=== PATIENT | male | born 1945 | race Caucasian/White ===

== ENCOUNTER 2016-02-18 15:28 | Observation (INO) ==
[2016-02-18] MEDS ORDERED: *HR* Morphine 2 MG/ML SYRINGE IVP PRN (15:32)
[2016-02-18] MEDS ORDERED: Ondansetron 4 MG/2 ML VIAL IVP PRN (15:32)
[2016-02-18] MEDS ORDERED: Naloxone 0.4 MG/ML INJ IVP PRN (15:32)
[2016-02-18] MEDS: Piperacillin/Tazobactam 3.375 GM in D5% in Water (Mini-Bag+) 100 ML IVPB SCH ×2 (16:00→18:36)
[2016-02-18 16:43] LABS: Basophils % 0.6 %; Eosinophils # 0.1 K/mcL (0.0-0.6); Eosinophils % 1.8 %; Hematocrit 34.6 % (37.5-50.1); Hemoglobin 10.5 g/dL (12.9-16.9); Immature Granulocytes % 0.3 % (0-4); Lymphocytes # 1.2 K/mcL (0.6-4.6); Lymphocytes % 16.2 %; Mean Corpuscular HGB Conc 30.3 g/dL (31.6-35.5); Mean Corpuscular Hemoglobin 23.9 pg (28.0-33.3); Mean Corpuscular Volume 78.6 fL (83.0-100.0); Mean Platelet Volume 9.7 fL (9.4-12.4); Monocytes % 13.5 %; Neutrophils # 4.9 K/mcL (1.6-8.9); Platelet Count 156 K/mcL (140-400); Red Cell Distribution Width 16.1 % (11.5-14.5); Segmented Neutrophils % 67.6 %
[2016-02-18] MEDS: Albuterol 2.5 MG/3 ML NEBULIZER IH SCH ×2 (16:44→21:12)
[2016-02-18 16:54] LABS: INR 2.2; Prothrombin Time 24.4 Seconds (9.4-12.1)
[2016-02-18 16:56] LABS: BUN/Creatinine Ratio 17 (6-26); Blood Urea Nitrogen 21 mg/dL (8-26); Calcium 8.7 mg/dL (8.6-10.8); Carbon Dioxide 27 mEq/L (19-29); Chloride 104 mEq/L (98-109); Glucose 92 mg/dL (70-99); Osmolality,Calculated 287 (280-300); Sodium 137 mEq/L (136-145); eGFR For African Americans > 60 (> 60); eGFR For Non-African Americans 56 (> 60)
[2016-02-18] MEDS: *HR* LORazepam 1 MG TABLET PO SCH (20:07)
[2016-02-18] MEDS: Beclomethasone 80mcg MDI IH SCH (21:10)
[2016-02-18] MEDS ORDERED: 0.9 % Sodium Chloride 1,000 ML IVC SCH (23:55)
[2016-02-19] MEDS: Piperacillin/Tazobactam 3.375 GM in D5% in Water (Mini-Bag+) 100 ML IVPB SCH ×3 (00:55→17:35)
[2016-02-19] MEDS: Albuterol 2.5 MG/3 ML NEBULIZER IH SCH ×4 (03:59→21:48)
[2016-02-19] MEDS ORDERED: Pantoprazole 40 MG VIAL IVP SCH (09:00)
[2016-02-19] MEDS: *HR* LORazepam 1 MG TABLET PO SCH ×2 (09:04→20:14)
[2016-02-19 11:21] LABS: Basophils # 0.1 K/mcL (0.0-0.2); Basophils % 0.7 %; Eosinophils # 0.1 K/mcL (0.0-0.6); Eosinophils % 1.6 %; Hematocrit 34.9 % (37.5-50.1); Hemoglobin 10.7 g/dL (12.9-16.9); Immature Granulocytes % 0.3 % (0-4); Lymphocytes # 1.5 K/mcL (0.6-4.6); Lymphocytes % 21.9 %; Mean Corpuscular HGB Conc 30.7 g/dL (31.6-35.5); Mean Corpuscular Hemoglobin 24.1 pg (28.0-33.3); Mean Corpuscular Volume 78.6 fL (83.0-100.0); Mean Platelet Volume 9.7 fL (9.4-12.4); Monocytes % 14.3 %; Neutrophils # 4.1 K/mcL (1.6-8.9); Platelet Count 167 K/mcL (140-400); Red Blood Count 4.44 M/mcL (4.19-5.50); Red Cell Distribution Width 16.3 % (11.5-14.5); Segmented Neutrophils % 61.2 %
[2016-02-19 11:27] LABS: INR 1.6; Prothrombin Time 17.3 Seconds (9.4-12.1)
[2016-02-19 11:32] LABS: BUN/Creatinine Ratio 15 (6-26); Blood Urea Nitrogen 18 mg/dL (8-26); Calcium 8.9 mg/dL (8.6-10.8); Carbon Dioxide 24 mEq/L (19-29); Chloride 105 mEq/L (98-109); Glucose 121 mg/dL (70-99); Osmolality,Calculated 287 (280-300); Potassium 4.5 mEq/L (3.5-4.5); Sodium 137 mEq/L (136-145); eGFR For African Americans > 60 (> 60); eGFR For Non-African Americans 58 (> 60)
[2016-02-19] MEDS: Beclomethasone 80mcg MDI IH SCH ×2 (11:38→21:48)
--- NOTE | 2016-02-19 14:38 | General Surgery Progress Note ---
<Latrice Guerrero Paul - Last Filed: 02/19/16 14:49> Date of Encounter: 02/19/16 Time of Encounter: 11:20 - Assessment and Plan (1) Incarcerated umbilical hernia Current Visit: Yes Status: Acute IV antibiotics Patient took last dose of Xarelto 02/18/16 in the am- plan to proceed to the OR for a likely primary repair of incarcerated umbilical hernia after evaluation by cardiology. To the OR likely in the next 24 hours. Supportive care/pain control Repeat labs (2) CAD (coronary artery disease) Current Visit: Yes Status: Chronic Cardiology to evaluate for pre-op clearance today Qualifiers: Coronary Disease-Associated Artery/Lesion type: bypass graft [place] vs. transplanted heart: [place] heart Associated angina: angina presence unspecified Qualified Code(s): I25.810 - Atherosclerosis of coronary artery bypass graft(s) without angina pectoris (3) Atrial fibrillation Current Visit: Yes Status: Chronic Rate controlled Continue home dose of metoprolol Hold Xarelto for surgery- last dose 02/18/16 in the am Qualifiers: Atrial fibrillation type: unspecified Qualified Code(s): I48.91 - Unspecified atrial fibrillation (4) Diabetes mellitus Current Visit: Yes Status: Chronic Blood sugars controlled Continue to monitor and adjust medications as necessary Qualifiers: Diabetes mellitus type: type 2 Diabetes mellitus complication status: without complication Diabetes mellitus fdc insulin use: without fdc use Qualified Code(s): E11.9 - Type 2 diabetes mellitus without complications (5) Hypertension Current Visit: Yes Status: Chronic Controlled Continue home medication regimen Monitor and adjust treatment regimen as necessary Qualifiers: Hypertension type: essential hypertension Qualified Code(s): I10 - Essential (primary) hypertension (6) COPD (chronic obstructive pulmonary disease) Current Visit: Yes Status: Chronic Controlled Continue home medication regimen Robitussin ordered prn for cough Qualifiers: COPD type: unspecified COPD Qualified Code(s): J44.9 - Chronic obstructive pulmonary disease, unspecified (7) Acute kidney injury Current Visit: Yes Status: Acute Continue IV fluids Improved today- 1.27>1.23 (8) DVT prophylaxis Current Visit: Yes Status: Acute 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 Patient on Xarelto- last dose 02/18/16 in the am Subjective Patient reports: no new complaints, feels better, still having pain, pain is less, flatus, afebrile, other (complaint of cough) Objective Vital Signs - Last 8 Hours Temp Pulse Resp BP Pulse Ox 02/19/16 10:45 97.8 F 62 15 144/74 97 02/19/16 06:44 98.7 F 82 17 149/87 92 L Intake and Output 02/18/16 02/19/16 02/19/16 23:59 07:59 15:59 Intake Total 540 / 540 100 / 100 Output Total 150 / 150 450 / 450 Balance 390 / 390 -350 / -350 Intake: IV Fluids 100 / 100 100 / 100 Zosyn 3.375 GM In 100 / 100 100 / 100 Dextrose 5% (Minibag+) 100 ML 100 ML @ 25 mls/hr IVPB Q8HR [facility] Rx#: [id number] Oral 440 / 440 0 / 0 Output: Urine 150 / 150 450 / 450 Other: Meal NPO Stool Size Large Stool Consistency soft Stool Color Yellow Green Weight 119.2 kg Blood Glucose* 124 110 - General physical appearance well developed, well nourished, no distress, moderate pain - Eyes normal ocular movement - ENT normal mucosa, atraumatic, normocephalic - Neck Neck exam: trachea midline - Respiratory normal respiratory effort, clear to auscultation - Cardiovascular Cardiovascular exam: Present: RRR - Abdomen Abdomen: Present: bowel sounds present, soft, tender (umbilical) Hernia: umbilical (erythema improved today) - Integumentary no rash, no growths - Neurologic CN 2-12 grossly intact - Musculoskeletal normal gait, normal posture - Psychiatric oriented to time, oriented to person, oriented to place, speech is normal, memory intact - Labs 02/19/16 11:09 02/19/16 11:09 Diabetes panel 02/18/16 02/19/16 Range/Units 16:35 11:09 Sodium 137 137 (136-145) mEq/L Potassium 4.0 4.5 (3.5-4.5) mEq/L Chloride 104 105 (98-109) mEq/L Carbon Dioxide 27 24 (19-29) mEq/L BUN 21 18 (8-26) mg/dL Creatinine 1.27 H 1.23 (0.72-1.25) mg/dL Glucose 92 121 H (70-99) mg/dL Calcium 8.7 8.9 (8.6-10.8) mg/dL Calcium panel 02/18/16 02/19/16 Range/Units 16:35 11:09 Calcium 8.7 8.9 (8.6-10.8) mg/dL Pituitary panel 02/18/16 02/19/16 Range/Units 16:35 11:09 Sodium 137 137 (136-145) mEq/L Potassium 4.0 4.5 (3.5-4.5) mEq/L Chloride 104 105 (98-109) mEq/L Carbon Dioxide 27 24 (19-29) mEq/L BUN 21 18 (8-26) mg/dL Creatinine 1.27 H 1.23 (0.72-1.25) mg/dL Glucose 92 121 H (70-99) mg/dL Calcium 8.7 8.9 (8.6-10.8) mg/dL Adrenal panel 02/18/16 02/19/16 Range/Units 16:35 11:09 Sodium 137 137 (136-145) mEq/L Potassium 4.0 4.5 (3.5-4.5) mEq/L Chloride 104 105 (98-109) mEq/L Carbon Dioxide 27 24 (19-29) mEq/L BUN 21 18 (8-26) mg/dL Creatinine 1.27 H 1.23 (0.72-1.25) mg/dL Glucose 92 121 H (70-99) mg/dL Calcium 8.7 8.9 (8.6-10.8) mg/dL Consult Discharge Plan - Plan Additional Instructions: No lifting more than 15 pounds for 6 weeks. Okay to take a shower in 24 hours. No tub baths or pools until jakob removed. Okay to ride in the car wearing a seatbelt and climb steps. No driving until off narcotics for 24 hours and able to react safely OK to use ice to abdomen, dont use heat it will make swelling worse wear your abdominal binder at all times while not in shower restart your xarelto 48 hrs after surgery Referrals: Suly Hartley MD [Partnered Physician] - Ronal Mcbride MD [Primary Care Provider] - Prescriptions: OxyCODONE/APAP 5/325 [Percocet 5/325 MG] 1 each PO Q6HR PRN #30 tablet PRN Reason: Pain Amoxicillin/Clavulanate [Augmentin] 875 mg PO BIDWM #14 tablet Docusate [Colace] 100 mg PO DAILY #30 capsule - Attending Attestation I examined this patient and my medical decision-making was reviewed with the FIREFIGHTING EQUIPMENT SPECIALIST/PA/Advanced Practice Nurse/Resident Physician. I agree with the documented findings, disposition and treatment plan as described except to the extent set forth below. <NaeemSuly Diaz - Last Filed: 02/19/16 18:17> - Assessment and Plan (1) Acute kidney injury Current Visit: Yes Status: Acute (2) Incarcerated umbilical hernia Current Visit: Yes Status: Acute (3) Atrial fibrillation Current Visit: Yes Status: Chronic Qualifiers: Atrial fibrillation type: unspecified Qualified Code(s): I48.91 - Unspecified atrial fibrillation (4) CAD (coronary artery disease) Current Visit: Yes Status: Chronic Qualifiers: Coronary Disease-Associated Artery/Lesion type: bypass graft [place] vs. transplanted heart: [place] heart Associated angina: angina presence unspecified Qualified Code(s): I25.810 - Atherosclerosis of coronary artery bypass graft(s) without angina pectoris (5) Hypertension Current Visit: Yes Status: Chronic Qualifiers: Hypertension type: essential hypertension Qualified Code(s): I10 - Essential (primary) hypertension Subjective Patient reports: feels better, still having pain, pain is less, flatus Objective Vital Signs - Last 8 Hours Temp Pulse Resp BP Pulse Ox 02/19/16 17:55 97.7 F 92 16 185/117 97 02/19/16 10:45 97.8 F 62 15 144/74 97 Intake and Output 02/19/16 02/19/16 02/19/16 07:59 15:59 23:59 Intake Total 100 / 100 100 / 100 Output Total 450 / 450 5 / 5 Balance -350 / -350 100 / 100 -5 / -5 Intake: IV Fluids 100 / 100 100 / 100 Zosyn 3.375 GM In 100 / 100 100 / 100 Dextrose 5% (Minibag+) 100 ML 100 ML @ 25 mls/hr IVPB Q8HR [facility] Rx#: [id number] Oral 0 / 0 Output: Urine 450 / 450 Estimated Blood Loss 5 / 5 Other: Meal NPO Stool Size Large Stool Consistency soft Stool Color Yellow Green Blood Glucose* 124 110 - General physical appearance well developed, well nourished, no distress, moderate pain - Eyes PERRL, normal ocular movement - ENT normal mucosa, decreased hearing, atraumatic - Neck Neck exam: trachea midline - Respiratory clear to auscultation - Cardiovascular Cardiovascular exam: Present: irregular rhythm - Abdomen Abdomen: Present: bowel sounds present, soft, tender Hernia: umbilical - Integumentary no rash, no growths - Neurologic CN 2-12 grossly intact - Musculoskeletal normal gait, normal posture - Psychiatric oriented to time, memory intact - Labs 02/19/16 11:09 02/19/16 11:09 Diabetes panel 02/19/16 Range/Units 11:09 Sodium 137 (136-145) mEq/L Potassium 4.5 (3.5-4.5) mEq/L Chloride 105 (98-109) mEq/L Carbon Dioxide 24 (19-29) mEq/L BUN 18 (8-26) mg/dL Creatinine 1.23 (0.72-1.25) mg/dL Glucose 121 H (70-99) mg/dL Calcium 8.9 (8.6-10.8) mg/dL Calcium panel 02/19/16 Range/Units 11:09 Calcium 8.9 (8.6-10.8) mg/dL Pituitary panel 02/19/16 Range/Units 11:09 Sodium 137 (136-145) mEq/L Potassium 4.5 (3.5-4.5) mEq/L Chloride 105 (98-109) mEq/L Carbon Dioxide 24 (19-29) mEq/L BUN 18 (8-26) mg/dL Creatinine 1.23 (0.72-1.25) mg/dL Glucose 121 H (70-99) mg/dL Calcium 8.9 (8.6-10.8) mg/dL Adrenal panel 02/19/16 Range/Units 11:09 Sodium 137 (136-145) mEq/L Potassium 4.5 (3.5-4.5) mEq/L Chloride 105 (98-109) mEq/L Carbon Dioxide 24 (19-29) mEq/L BUN 18 (8-26) mg/dL Creatinine 1.23 (0.72-1.25) mg/dL Glucose 121 H (70-99) mg/dL Calcium 8.9 (8.6-10.8) mg/dL
--- NOTE | 2016-02-19 14:50 | Cardiology Consult Note ---
Date of Encounter: 02/19/16 Time of Encounter: 13:30 Assessment and Plan (1) Preoperative cardiovascular examination Current Visit: Yes Status: Acute Mr. Sanchez is known to me from the outpatient setting. I just saw him recently on February 11, 2016 for a routine follow up. He was doing well from a cardiac perspective at that time. He continues to deny cardiac symptoms. His only complaint is that of abdominal pain. He recently had an echo demonstrating normal LV function and normal bioprosthetic mitral valve function. He has at least fair functional capacity. According to AHA/ACC guidelines, no further testing is warranted pre-procedurally. He is at acceptable cardiac risk to undergo repair of an incarcerated umbilical hernia. Of note, it has been over 24h since his last dose of xarelto. It is reasonable to undergo surgery. Will defer to the surgical team. Discussion w patient/family: The assessment and plan as outlined above was discussed with the patient and/or family members who expressed understanding and agreement. All questions were answered. Thank you for involving us in the care of your patient. Please call with any questions. History of Present Illness Consult date: 02/19/16 Requesting physician: Latrice Guerrero Consult reason: Pre operative evaluation Chief complaint: abdominal discomfort History of present illness: Mr. Sanchez is a 70 year old male admitted from the outpatient office for an incarcerated umbilical hernia. He reports having worsening abdominal pain over the past week. I recently saw him in the outpatient setting on 02/11/2016 when he was doing well. He denies new cardiac symptoms. He is not having chest pain , SOB or palpitations. He has baseline LE edema and is on lasix. He has PAF and is maintained on xarelto. Past Med Surg Social Fam HX - Past Medical History Attestation: Yes The following information was validated with the patient. Medical history: atrial fibrillation, cancer, CHF, COPD, hyperlipidemia, valvular heart disease Psychiatric history: anxiety, depression - Past Surgical History Surgical History: angioplasty/stent, coronary bypass (CABG), prostatectomy, AICD - Social History Smoking Status: Former smoker Smokeless Tobacco Status: No Alcohol use: none Drug use: none Medications and Allergies Acetaminophen [Tylenol] 1 - 2 tab PO Q6HR PRN #90 tablet 10/12/15 [Rx] Albuterol Sulfate [Proair Hfa] 2 puff IH Q4H PRN 10/12/15 [History] Aspirin 81 mg PO DAILY 10/12/15 [History] Beclomethasone Diprop 80mcg [QVAR 80 mcg] 1 puff IH BID 10/12/15 [History] Furosemide [Lasix] 40 mg PO DAILY 10/12/15 [History] LORazepam [Ativan] 1 mg PO BID 10/12/15 [History] Lansoprazole [Prevacid] 30 mg PO DAILY PRN 10/12/15 [History] Losartan [Cozaar] 50 mg PO DAILY 10/12/15 [History] Metoprolol Tartrate [Lopressor] 50 mg PO BID 10/12/15 [History] Montelukast [Singulair] 10 mg PO QPM 10/12/15 [History] Nitroglycerin [Nitrostat] 0.4 mg SL AD PRN 10/12/15 [History] Potassium Chloride [K-Tab ER] 10 meq PO DAILY 10/12/15 [History] Ranitidine HCl [Heartburn Relief] 150 mg PO DAILY PRN 10/12/15 [History] Rivaroxaban [Xarelto] 20 mg PO DAILY 10/12/15 [History] Rosuvastatin Calcium [Crestor] 10 mg PO QPM 10/12/15 [History] TraZODone 50 mg PO HS 10/12/15 [History] Mirabegron [Myrbetriq] 50 mg PO DAILY 02/18/16 [History] Allergies codeine Allergy (Verified 02/18/16 22:15) Anaphylaxis lisinopril Adverse Reaction (Verified 10/12/15 11:06) Cough All Systems Review: A 10-system review of systems was performed and is negative for pertinent findings except as documented above in the HPI. - Cardiovascular Cardiovascular: as per HPI Physical Examination General: Conversant, No Apparent Distress HEENT: Mucus Membranes Moist Neck: No JVD Cardiac: Reg Rate and Rhythm, Normal S1 and S2, No Murmur Lungs: Normal Breath Sounds Neuro: Alert and responsive, No focal deficits noted Abdomen: Soft, Other (normal bowel sounds) Extremities: Other (mild bilateral LE edema) Results 02/19/16 11:09 02/19/16 11:09 Lab Results 02/18/16 02/18/16 02/18/16 16:35 16:35 16:35 WBC 7.2 Hgb 10.5 L Hct 34.6 L Plt Count 156 INR 2.2 Sodium 137 Potassium 4.0 Chloride 104 Carbon Dioxide 27 BUN 21 Creatinine 1.27 H Glucose 92 Calcium 8.7 02/19/16 02/19/16 02/19/16 11:09 11:09 11:09 WBC 6.8 Hgb 10.7 L Hct 34.9 L Plt Count 167 INR 1.6 Sodium 137 Potassium 4.5 Chloride 105 Carbon Dioxide 24 BUN 18 Creatinine 1.23 Glucose 121 H Calcium 8.9 - Imaging and Cardiology Echo: report reviewed (07/24/2015 echo reviewed) Consult Discharge Plan - Plan Referrals: Ronal Mcbride MD [Primary Care Provider] -
--- NOTE | 2016-02-19 16:21 | Anesthesia Evaluation PreOp ---
Date of Encounter: 02/19/16 Time of Encounter: 16:18 - Past History Planned Operation: Incarcerated Umbilical Hernia Repair Cardiac History: AR, HTN, Hyperlipidemia, Cardiac Surgery (CABG x 2, MV repair) , Cardiac Stent (stent x 1), Pacemaker/ICD (AICD) Pulmonary History: Former smoker (quit 13 years ago, smoked for 40 years), Asthma, COPD WILDLIFE MANAGER History: Denies Any Significant HX Other Medical History: GERD Anesthesia History: No Prior Anesthetic Complications, Past Anesthesia Alcohol Use: none Drug use: none Medications and Allergies Acetaminophen [Tylenol] 1 - 2 tab PO Q6HR PRN #90 tablet 10/12/15 [Rx] Albuterol Sulfate [Proair Hfa] 2 puff IH Q4H PRN 10/12/15 [History] Aspirin 81 mg PO DAILY 10/12/15 [History] Beclomethasone Diprop 80mcg [QVAR 80 mcg] 1 puff IH BID 10/12/15 [History] Furosemide [Lasix] 40 mg PO DAILY 10/12/15 [History] LORazepam [Ativan] 1 mg PO BID 10/12/15 [History] Lansoprazole [Prevacid] 30 mg PO DAILY PRN 10/12/15 [History] Losartan [Cozaar] 50 mg PO DAILY 10/12/15 [History] Metoprolol Tartrate [Lopressor] 50 mg PO BID 10/12/15 [History] Montelukast [Singulair] 10 mg PO QPM 10/12/15 [History] Nitroglycerin [Nitrostat] 0.4 mg SL AD PRN 10/12/15 [History] Potassium Chloride [K-Tab ER] 10 meq PO DAILY 10/12/15 [History] Ranitidine HCl [Heartburn Relief] 150 mg PO DAILY PRN 10/12/15 [History] Rivaroxaban [Xarelto] 20 mg PO DAILY 10/12/15 [History] Rosuvastatin Calcium [Crestor] 10 mg PO QPM 10/12/15 [History] TraZODone 50 mg PO HS 10/12/15 [History] Mirabegron [Myrbetriq] 50 mg PO DAILY 02/18/16 [History] Allergies codeine Allergy (Verified 02/18/16 22:15) Anaphylaxis lisinopril Adverse Reaction (Verified 10/12/15 11:06) Cough - Meds/Allergy Pre-op Review Medications Reviewed: Yes Allergies Reviewed: Yes Beta Blockers on Current Med List: Yes If Beta Blockers taken, Date/Time (Last Dose taken): 02/19/2016 at 0904 Anesthesia Results - Labs 02/19/16 11:09 02/19/16 11:09 - Imaging EKG: report reviewed (12/07/2015 SR, occasional PSVC's, possible inferior infarct) Additional studies: 07/24/2015 Echo LVEF 55% mild concentric LVH mild segmental LV diastolic dysfunction moderately dilated LA bioprosthetic mitral valve leaflets were not well visualized but demonstrated normal function by doppler no mitral stenosis 05/05/2014 Cath Impressions: 30%-40% distal LM stenosis with FFR Measurement of 0.93. 70%-80% mid LAD stenosis with FFR Measurement of 0.80. 80% Diagonal I stenosis (bifurcating lesion with the mid LAD stenosis). Occluded dominant mid RCA stents with immature left to right collaterals seen. The left ventricle is normal and has severely abnormal contractility EF of 35%. Anesthesia Exam Vital Signs/O2 Sat/Glucose, Most Recent Temp Pulse Resp BP Pulse Ox 97.8 F 62 15 144/74 97 02/19/16 10:45 02/19/16 10:45 02/19/16 10:45 02/19/16 10:45 02/19/16 10:45 Blood Glucose* 110 Height: 5'7''/1.7 m Weight: 262 lbs/119.2 kg NPO (# of Hours): 8 Pain Scale: 0 Pain Scale Used: Numeric (1 - 10) - HEENT Pupil (Motor): EOMI Mallampati: III Teeth: Missing (has 2 lower teeth) Denture Type: Upper: Complete Oral Opening: Greater than 3 - WILDLIFE MANAGER LOC: Oriented WILDLIFE MANAGER Motor: Normal RUE, Normal RLE, Normal LLE, Normal Face, Deficit LUE WILDLIFE MANAGER Sensory: Normal: RUE, RLE, LLE, Face, Deficit: LUE - Cardiac Rhythm: Regular Murmur: None - Pulmonary Breath Sounds: bilateral Clear Respiratory Effort: Symmetrical Anesthesia Assess/Plan ASA Score: 3 Modified [place] Scale for Level of Consciousness: Cooperative, oriented, and tranquil Anesthetic Plan: General Monitoring Plan: Standard Monitors Recovery Plan: PACU
[2016-02-19] MEDS ORDERED: *HR* Midazolam HCl 2 MG/2 ML VIAL ONE (16:28)
--- NOTE | 2016-02-19 16:38 | Electrocardiograph Report ---
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
[2016-02-19] MEDS ORDERED: *HR* Succinylcholine 200 MG/10 ML VIAL IVP ONE (16:41)
[2016-02-19] MEDS ORDERED: Dexamethasone 4 MG/ML VIAL ONE (16:51)
[2016-02-19] MEDS ORDERED: Ondansetron 4 MG/2 ML VIAL ONE (16:51)
[2016-02-19] MEDS ORDERED: Lidocaine -MPF 2% 2 ML VIAL ONE (16:53)
[2016-02-19] MEDS ORDERED: *HR* FentaNYL (PF) 100 MCG/2 ML VIAL ONE (16:53)
[2016-02-19] MEDS ORDERED: *HR* Propofol 200 MG/20 ML VIAL IVP ONE (16:53)
[2016-02-19] MEDS ORDERED: *HR* Rocuronium Bromide 50 MG/5 ML VIAL ONE (17:00)
[2016-02-19] MEDS ORDERED: *HR* Promethazine 25 MG/ML VIAL IVP PRN (17:17)
[2016-02-19] MEDS ORDERED: *HR* HYDROmorphone (PF) 1 MG/ML SYRINGE IVP PRN ×2 (17:17→19:45)
[2016-02-19] MEDS ORDERED: Neostigmine Methylsulfate 3 MG/3 ML SYRINGE ONE (17:42)
[2016-02-19] MEDS ORDERED: Ketorolac 30 MG/ML VIAL ONE (17:43)
--- NOTE | 2016-02-19 17:51 | Operative Note ---
Date of procedure: 02/19/16 Pre-op diagnosis: incarcerated umbilical hernia Post-op diagnosis: other (Strangulated umbilical hernia) Procedure: Open primary repair of a strangulated (omentum) umbilical hernia Complications: none immediate Anesthesia: GETA, local Local Anesthetics: 0.5% Sensorcaine HCL SubQ (cc) (30) Surgeon: Suly Hartley Commutator Tester: Julia Samano Estimated blood loss (cc): 5 Specimen: none Condition: stable Disposition: PACU Procedure in Detail: Patient was brought to the operating suite and placed supine on the operating table. Sign was performed and everyone was in agreement. Anesthesia was induced and patient was endotracheally intubated by anesthesia without incident. The abdomen was shaved and then prepped and draped in the usual sterile fashion. Timeout was performed again everyone was in agreement. A left lateral semicircular incision through the skin into the subcutaneous tissue around the umbilicus was made with a 15 blade. We dissected through the subcutaneous tissue until we encountered the umbilical hernia which Contained strangulated omentum. The omentum was reduced out of the umbilical hernia with gentle blunt dissection as well as the Bovie. A small amount of omentum was resected with the Bovie. The omentum that was adherent to the intra-abdominal wall around the hernia was taken down with the Bovie. The omentum was evaluated for any bleeding and there did not appear to be any obvious bleeding. The omentum was reduced back into the abdomen. The subcutaneous tissue around the hernia defect was freed up for approximately a centimeter and a half circumferentially with the Bovie. The hernia defect was closed with multiple # 1 non-looped PDS [id number] stitches. The wound was copiously irrigated with sterile saline. The umbilicus skin was tacked down with 2 separate 3-0 Vicryl [id number] stitches. The subcutaneous tissue was reapproximated with 3-0 Vicryl interrupted stitches. The skin was closed with jakob. 4 x 4' s and Medipore tape were used as a dressing. A 4 panel binder was then applied to the patient's abdomen. He was awoken in the operating suite and extubated having tolerated the procedure well. All lap and instrument counts were correct at the end of the case. The patient was brought to PACU in stable condition
--- NOTE | 2016-02-19 17:57 | Discharge Summary ---
<Suly Hartley - Last Filed: 02/19/16 17:52> Date of Encounter: 02/20/16 Time of Encounter: 12:00 - Discharge Diagnosis (1) Acute kidney injury Priority: Secondary Status: Acute (2) Incarcerated umbilical hernia Priority: Primary Status: Acute (3) Atrial fibrillation Priority: Secondary Status: Chronic Qualifiers: Atrial fibrillation type: unspecified Qualified Code(s): I48.91 - Unspecified atrial fibrillation (4) CAD (coronary artery disease) Priority: Secondary Status: Chronic Qualifiers: Coronary Disease-Associated Artery/Lesion type: bypass graft [place] vs. transplanted heart: [place] heart Associated angina: angina presence unspecified Qualified Code(s): I25.810 - Atherosclerosis of coronary artery bypass graft(s) without angina pectoris (5) Hypertension Priority: Secondary Status: Chronic Qualifiers: Hypertension type: essential hypertension Qualified Code(s): I10 - Essential (primary) hypertension - Discharge Medications Prescriptions: OxyCODONE/APAP 5/325 [Percocet 5/325 MG] 1 each PO Q6HR PRN #30 tablet PRN Reason: Pain Amoxicillin/Clavulanate [Augmentin] 875 mg PO BIDWM #14 tablet Docusate [Colace] 100 mg PO DAILY #30 capsule Home Medications: Acetaminophen [Tylenol] 1 - 2 tab PO Q6HR PRN #90 tablet 10/12/15 [Rx] Albuterol Sulfate [Proair Hfa] 2 puff IH Q4H PRN 10/12/15 [History] Aspirin 81 mg PO DAILY 10/12/15 [History] Beclomethasone Diprop 80mcg [QVAR 80 mcg] 1 puff IH BID 10/12/15 [History] Furosemide [Lasix] 40 mg PO DAILY 10/12/15 [History] LORazepam [Ativan] 1 mg PO BID 10/12/15 [History] Lansoprazole [Prevacid] 30 mg PO DAILY PRN 10/12/15 [History] Losartan [Cozaar] 50 mg PO DAILY 10/12/15 [History] Metoprolol Tartrate [Lopressor] 50 mg PO BID 10/12/15 [History] Montelukast [Singulair] 10 mg PO QPM 10/12/15 [History] Nitroglycerin [Nitrostat] 0.4 mg SL AD PRN 10/12/15 [History] Potassium Chloride [K-Tab ER] 10 meq PO DAILY 10/12/15 [History] Ranitidine HCl [Heartburn Relief] 150 mg PO DAILY PRN 10/12/15 [History] Rivaroxaban [Xarelto] 20 mg PO DAILY 10/12/15 [History] Rosuvastatin Calcium [Crestor] 10 mg PO QPM 10/12/15 [History] TraZODone 50 mg PO HS 10/12/15 [History] Amoxicillin/Clavulanate [Augmentin] 875 mg PO BIDWM #14 tablet 02/19/16 [Rx] Docusate [Colace] 100 mg PO DAILY #30 capsule 02/19/16 [Rx] Mirabegron [Myrbetriq] 50 mg PO DAILY #0 02/19/16 [Rx] OxyCODONE/APAP 5/325 [Percocet 5/325 MG] 1 each PO Q6HR PRN #30 tablet 02/19/16 [Rx] Allergies/Adverse Reactions: Allergies codeine Allergy (Verified 02/18/16 22:15) Anaphylaxis lisinopril Adverse Reaction (Verified 10/12/15 11:06) Cough General Surgery Exam Initial Vital Signs Resp Pulse Ox 18 97 02/18/16 16:47 02/18/16 16:47 - General physical appearance well developed, well nourished, no distress, obese - Eyes PERRL, normal ocular movement - ENT normal mucosa, atraumatic, normocephalic - Neck trachea midline - Respiratory normal expansion, clear to auscultation - Cardiovascular Cardiovascular exam: Present: RRR, no murmurs/rubs/gallops - Abdomen Abdomen general surgery: Present: bowel sounds present, soft, tender (expected post op tenderness) - Incision Incision: Present: clean and dry, intact - Neurologic Present: CN 2-12 grossly intact - Musculoskeletal Present: normal gait, normal posture - Psychiatric Psychiatric general surgery: Present: A&Ox3, speech is normal Date of admission: 02/18/16 15:41 Primary care physician: Ronal Mcbride MD Consults: 02/18/16 15:45 Consult to Cardiology [CONS] Routine Comment: Consulting Provider: Cardiology [place] Reason for Consult: cardiac clearance, pt with incarcerated/possible strangulated hernia, holding xeralto Time Notified: 15:46 Call Completed: Yes 02/18/16 17:52 Consult to Invasive Line Access Team [CONS] Routine Reason for Consult: limited acsess Line Type: EPIV Time Notified: 17:53 Call Completed: Yes Discharging clinician: Suly Hartley Anticipated date of discharge: 02/20/16 - Patient Status Disposition: Home, Self-Care Condition: Good Overall status at discharge: patient is progressing back to baseline - Discharge Instructions Follow Up With: Ronal Mcbride MD [Primary Care Provider] - Suly Hartley MD [Partnered Physician] - Additional Instructions: No lifting more than 15 pounds for 6 weeks. Okay to take a shower in 24 hours. No tub baths or pools until jakob removed. Okay to ride in the car wearing a seatbelt and climb steps. No driving until off narcotics for 24 hours and able to react safely OK to use ice to abdomen, dont use heat it will make swelling worse wear your abdominal binder at all times while not in shower restart your xarelto 48 hrs after surgery - Diet and Activity Activity: increase activity as tolerated Diet: advance to your usual diet - Hospital Course Hospital course: Mr. Sanchez is a 70 year old male admitted with an incarcerated umbilical hernia. The abdominal wall around the hernia site was erythematous and tender. The skin of the umbilicus was erythematous and bruised. He was started on IV antibiotics. He was taken to the OR on 02/19/2016 for an open primary repair of a strangulated umbilical hernia. Strangulated omentum was within the hernia. Postoperatively he was started on a diet and advanced as he tolerated. He was discharged home in stable condition. - Time Spent with Patient Total time spent providing and/or coordinating discharge services: Labs on day of discharge: Labs from last 24 hours 02/19/16 02/19/16 02/19/16 11:44 11:09 11:09 WBC RBC Hgb Hct MCV MCH MCHC RDW Plt Count MPV Immature Gran % Seg Neutrophils % Lymphocytes % Monocytes % Eosinophils % Basophils % Neutrophils # Lymphocytes # Monocytes # Eosinophils # Basophils # PT 17.3 H INR 1.6 Sodium 137 Potassium 4.5 Chloride 105 Carbon Dioxide 24 BUN 18 Creatinine 1.23 Est GFR ( Amer) > 60 Est GFR (Non-Af Amer) 58 L BUN/Creatinine Ratio 15 Glucose 121 H POC Glucose 110 H Calculated Osmolality 287 Calcium 8.9 02/19/16 02/19/16 11:09 05:18 WBC 6.8 RBC 4.44 Hgb 10.7 L Hct 34.9 L MCV 78.6 L MCH 24.1 L MCHC 30.7 L RDW 16.3 H Plt Count 167 MPV 9.7 Immature Gran % 0.3 Seg Neutrophils % 61.2 Lymphocytes % 21.9 Monocytes % 14.3 Eosinophils % 1.6 Basophils % 0.7 Neutrophils # 4.1 Lymphocytes # 1.5 Monocytes # 1.0 Eosinophils # 0.1 Basophils # 0.1 PT INR Sodium Potassium Chloride Carbon Dioxide BUN Creatinine Est GFR ( Amer) Est GFR (Non-Af Amer) BUN/Creatinine Ratio Glucose POC Glucose 124 H Calculated Osmolality Calcium <Marita Ordonez - Last Filed: 02/20/16 11:53> Time of Encounter: 11:53 - Discharge Diagnosis (1) Incarcerated umbilical hernia Priority: Primary Status: Acute (2) Acute kidney injury Priority: Secondary Status: Acute (3) Atrial fibrillation Priority: Secondary Status: Chronic Qualifiers: Atrial fibrillation type: unspecified Qualified Code(s): I48.91 - Unspecified atrial fibrillation (4) CAD (coronary artery disease) Priority: Secondary Status: Chronic Qualifiers: Coronary Disease-Associated Artery/Lesion type: bypass graft [place] vs. transplanted heart: [place] heart Associated angina: angina presence unspecified Qualified Code(s): I25.810 - Atherosclerosis of coronary artery bypass graft(s) without angina pectoris (5) COPD (chronic obstructive pulmonary disease) Priority: Secondary Status: Chronic Qualifiers: COPD type: unspecified COPD Qualified Code(s): J44.9 - Chronic obstructive pulmonary disease, unspecified (6) Diabetes mellitus Priority: Secondary Status: Chronic Qualifiers: Diabetes mellitus type: type 2 Diabetes mellitus complication status: without complication Diabetes mellitus moth exterminator insulin use: without moth exterminator use Qualified Code(s): E11.9 - Type 2 diabetes mellitus without complications (7) Hypertension Priority: Secondary Status: Chronic Qualifiers: Hypertension type: essential hypertension Qualified Code(s): I10 - Essential (primary) hypertension (8) DVT prophylaxis Priority: Secondary Status: Acute General Surgery Exam Initial Vital Signs Resp Pulse Ox 18 97 02/18/16 16:47 02/18/16 16:47 - General physical appearance well developed, well nourished, no distress, obese - Eyes PERRL, normal ocular movement - ENT normal mucosa, atraumatic, normocephalic - Neck trachea midline - Respiratory normal expansion, clear to auscultation - Cardiovascular Cardiovascular exam: Present: RRR, no murmurs/rubs/gallops - Abdomen Abdomen general surgery: Present: bowel sounds present, soft, tender - Incision Incision: Present: clean and dry, intact - Integumentary Integumentary general surgery: Present: warm and dry, no abnormal pigmentation - Neurologic Present: CN 2-12 grossly intact - Musculoskeletal Present: normal gait, normal posture - Psychiatric Psychiatric general surgery: Present: A&Ox3, speech is normal Date of admission: 02/18/16 15:41 Primary care physician: Ronal Mcbride MD Consults: 02/18/16 15:45 Consult to Cardiology [CONS] Routine Comment: Consulting Provider: Cardiology [place] Reason for Consult: cardiac clearance, pt with incarcerated/possible strangulated hernia, holding xeralto Time Notified: 15:46 Call Completed: Yes Discharging clinician: Marita Ordonez - Patient Status Overall status at discharge: patient is progressing back to baseline - Diet and Activity Activity: increase activity as tolerated Diet: advance to your usual diet - Time Spent with Patient Total time spent providing and/or coordinating discharge services: Labs on day of discharge: Labs from last 24 hours 02/20/16 02/20/16 02/19/16 04:22 04:22 11:44 WBC 7.3 RBC 3.95 L Hgb 9.9 L Hct 30.8 L MCV 78.0 L MCH 25.1 L MCHC 32.1 RDW 15.9 H Plt Count 147 MPV 10.3 Immature Gran % 0.4 Seg Neutrophils % 82.9 Lymphocytes % 9.6 Monocytes % 7.0 Eosinophils % 0.0 Basophils % 0.1 Neutrophils # 6.0 Lymphocytes # 0.7 Monocytes # 0.5 Eosinophils # 0.0 Basophils # 0.0 Sodium 136 Potassium 4.4 Chloride 102 Carbon Dioxide 23 BUN 18 Creatinine 1.35 H Est GFR ( Amer) > 60 Est GFR (Non-Af Amer) 52 L BUN/Creatinine Ratio 13 Glucose 142 H POC Glucose 110 H Calculated Osmolality 286 Calcium 8.5 L - Impressions ITS Impressions Chest X-Ray 02/19/16 18:26 IMPRESSION: Mild right basilar atelectasis. Stable cardiomegaly, associated with ICD and mitral valve replacement. D/ / Aaron Basilio MD / Aaron Basilio MD Interpreting Provider: Aaron Basilio MD <Zi Welsh - Last Filed: 02/21/16 12:28> Date of Encounter: 02/20/16 General Surgery Exam Initial Vital Signs Resp Pulse Ox 18 97 02/18/16 16:47 02/18/16 16:47 Date of admission: 02/18/16 15:41 Primary care physician: Ronal Mcbride MD Consults: 02/18/16 15:45 Consult to Cardiology [CONS] Routine Comment: Consulting Provider: Cardiology [place] Reason for Consult: cardiac clearance, pt with incarcerated/possible strangulated hernia, holding xeralto Time Notified: 15:46 Call Completed: Yes - Hospital Course Hospital course: Mr. Sanchez is a 70 year old male - Time Spent with Patient Total time spent providing and/or coordinating discharge services: - Impressions ITS Impressions Chest X-Ray 02/19/16 18:26 IMPRESSION: Mild right basilar atelectasis. Stable cardiomegaly, associated with ICD and mitral valve replacement. D/ / Aaron Basilio MD / Aaron Basilio MD Interpreting Provider: Aaron Basilio MD - Attending Attestation I examined this patient and my medical decision-making was reviewed with the BINGO CHECKER/PA/Advanced Practice Nurse/Resident Physician. I agree with the documented findings, disposition and treatment plan as described except to the extent set forth below. Zi Welsh MD FACS
[2016-02-19] MEDS: *HR* Labetalol 100 MG/20 ML MDV IVP PRN ×2 (18:05→18:13)
[2016-02-19] MEDS ORDERED: Albuterol 2.5 MG/3 ML NEBULIZER ONE (18:07)
[2016-02-19] MEDS ORDERED: Albuterol 2.5 MG/3 ML NEBULIZER IH ONE (18:09)
[2016-02-19] MEDS ORDERED: Furosemide 40 MG/4 ML VIAL IVP ONE (18:38)
[2016-02-19] MEDS ORDERED: Furosemide 20 MG/2 ML VIAL IVP ONE ×2 (18:39→18:40)
--- NOTE | 2016-02-19 19:15 | Anesthesia Evaluation Post Op ---
Date of Encounter: 02/19/16 Time of Encounter: 19:13 - Vital Signs Vital Signs: Vital Signs/O2 Sat, Most Current Temp Pulse Resp BP Pulse Ox 97.5 F L 61 20 163/94 97 02/19/16 18:55 02/19/16 18:55 02/19/16 18:55 02/19/16 18:55 02/19/16 18:55 - Lungs Lungs: Clear Ascult./Percussion (distant BS) - Airway Airway: Non-obstructed - Cardiovascular Regular Rate - Mental Status Mental Status: Alert & Oriented, Answers Appropriately - Pain Pain Scale: 5 Pain Scale used: Numeric (1 - 10) - Nausea Vomiting Nausea Vomiting: Not Present - Hydration Hydration: NPO, Able to void - Discharge PostOp Status: Transfer Patient to floor
[2016-02-19] MEDS: Albuterol 2.5 MG/3 ML NEBULIZER IH ONE (19:45)
[2016-02-19] MEDS ORDERED: Naloxone 0.4 MG/ML INJ IVP PRN (19:45)
[2016-02-19] MEDS ORDERED: 0.9 % Sodium Chloride 1,000 ML IVC SCH (19:45)
[2016-02-19] MEDS ORDERED: Ondansetron 4 MG/2 ML VIAL IVP PRN (19:45)
[2016-02-19] MEDS: *HR* OxyCODONE/APAP 5/325 TABLET PO PRN (23:18)
[2016-02-20] MEDS: Piperacillin/Tazobactam 3.375 GM in D5% in Water (Mini-Bag+) 100 ML IVPB SCH ×2 (01:37→08:02)
[2016-02-20] MEDS: Albuterol 2.5 MG/3 ML NEBULIZER IH SCH ×2 (04:15→10:18)
[2016-02-20] MEDS: *HR* OxyCODONE/APAP 5/325 TABLET PO PRN ×2 (04:20→10:47)
[2016-02-20 04:51] LABS: Basophils % 0.1 %; Hematocrit 30.8 % (37.5-50.1); Hemoglobin 9.9 g/dL (12.9-16.9); Immature Granulocytes % 0.4 % (0-4); Lymphocytes # 0.7 K/mcL (0.6-4.6); Lymphocytes % 9.6 %; Mean Corpuscular HGB Conc 32.1 g/dL (31.6-35.5); Mean Corpuscular Hemoglobin 25.1 pg (28.0-33.3); Mean Platelet Volume 10.3 fL (9.4-12.4); Monocytes # 0.5 K/mcL (0.0-1.3); Platelet Count 147 K/mcL (140-400); Red Blood Count 3.95 M/mcL (4.19-5.50); Red Cell Distribution Width 15.9 % (11.5-14.5); Segmented Neutrophils % 82.9 %
[2016-02-20 05:09] LABS: BUN/Creatinine Ratio 13 (6-26); Blood Urea Nitrogen 18 mg/dL (8-26); Calcium 8.5 mg/dL (8.6-10.8); Carbon Dioxide 23 mEq/L (19-29); Chloride 102 mEq/L (98-109); Glucose 142 mg/dL (70-99); Osmolality,Calculated 286 (280-300); Potassium 4.4 mEq/L (3.5-4.5); Sodium 136 mEq/L (136-145); eGFR For African Americans > 60 (> 60); eGFR For Non-African Americans 52 (> 60)
[2016-02-20] MEDS: Albuterol 2.5 MG/3 ML NEBULIZER IH ONE (07:30)
[2016-02-20] MEDS: *HR* LORazepam 1 MG TABLET PO SCH (08:01)
[2016-02-20] MEDS ORDERED: Pantoprazole 40 MG VIAL IVP SCH (09:00)
[2016-02-20] MEDS: Beclomethasone 80mcg MDI IH SCH (10:18)
[2016-02-20 10:39] VITALS: BP 133/75
== END 2016-02-20 14:19 | disposition home or self-care (01) ==
LOC: 3ANU
PROVIDERS: ADMIT Surgery; ATTEND Surgery

== ENCOUNTER 2018-06-14 07:13 | Inpatient (IN) ==
--- NOTE | 2018-06-14 07:07 | Anesthesia Evaluation PreOp ---
Date of Encounter: 06/14/18 Time of Encounter: 07:05 - Past History Planned Operation: Left Thoracotomy, Left Upper Lobectomy Cardiac History: [place], HTN, Hyperlipidemia, Arrhythmia (paroxysmal A-Fib on Xarelto, last dose taken 06/10/2018), Cardiac Surgery (CABG x 2 with MV repair in 2014), Cardiac Stent (stent x 3 in beginning 1999), Pacemaker/ICD (Medtronic pacemaker/AICD) Pulmonary History: Former smoker (quit 2005, smoked for 40 years), COPD, LUIS Dx PHARMACOVIGILANCE SPECIALIST History: Denies Any Significant HX Other Medical History: GERD, Other (obesity BMI=40.8, H/O prostate CA S/P prostatectomy) Anesthesia History: No Prior Anesthetic Complications, Past Anesthesia Alcohol Use: none Drug use: none Medications and Allergies Aspirin 81 mg PO DAILY 10/12/15 [History] Furosemide [Lasix] 40 mg PO DAILY 10/12/15 [History] LORazepam [Ativan] 1 mg PO BID PRN 10/12/15 [History] Lansoprazole [Prevacid] 30 mg PO DAILY 10/12/15 [History] Metoprolol Tartrate [Lopressor] 50 mg PO BID 10/12/15 [History] Montelukast [Singulair] 10 mg PO QPM 10/12/15 [History] Nitroglycerin [Nitrostat] 0.4 mg SL Q5M PRN 10/12/15 [History] Rivaroxaban [Xarelto] 20 mg PO DAILY 10/12/15 [History] Rosuvastatin Calcium [Crestor] 10 mg PO QPM 10/12/15 [History] Albuterol Sulfate [Ventolin Hfa] 18 gm IH Q4H PRN 04/17/18 [History] Potassium Chloride [Klor-Con 10] 10 meq PO BID 04/17/18 [History] Tiotropium Br/Olodaterol HCl [Stiolto Respimat Inhal [place]] 2 puff IH DAILY 04/17/18 [History] metOLazone [Zaroxolyn] 2.5 mg PO 2XW 04/17/18 [History] Cholecalciferol (D-3) [Vitamin D] 2,000 unit PO DAILY 06/14/18 [History] traZODone [TraZODone] 50 mg PO HS 06/14/18 [History] Allergy/AdvReac Type Severity Reaction Status Date / Time codeine AdvReac See Verified 06/14/18 08:01 Comments lisinopril AdvReac Cough Verified 06/14/18 08:01 - Meds/Allergy Pre-op Review Medications Reviewed: Yes Allergies Reviewed: Yes Beta Blockers on Current Med List: Yes If Beta Blockers taken, Date/Time (Last Dose taken): 06/14/2018 at 0630 Anesthesia Results - Labs Laboratory Tests 06/04/18 06/04/18 06/04/18 11:01 11:01 11:01 WBC 6.6 Hgb 11.0 L Hct 35.7 L Plt Count 154 PT 21.7 H INR 1.9 APTT 38.7 H Sodium 138 Potassium 4.2 BUN 16 Creatinine 1.14 - Imaging EKG: report reviewed (04/07/2017 ATRIAL FIBRILLATION WITH RAPID VENTRICULAR RESPONSE BORDERLINE RIGHT AXIS DEVIATION INFERIOR MYOCARDIAL INFARCTION, PROBABLY OLD) Additional studies: Echo 03/2018 Impressions: Technically challenging due to body habitus. LVEF 55%. Definity echo contrast was used. Indeterminate diastolic function. RV is poorly visualized. History of mitral valve annuloplasty. Mild mitral regurgitation. Mild elevation of gradients across the mitral valve (MG 5 mmHg at 74 bpm). Mild tricuspid regurgitation. No pulmonary hypertension. A device lead was visualized in the right atrium and right ventricle. Stress 09/18/2017 Impression: Pharmacologic stress ECG is negative for ischemia at level of heart rate achieved. Gated EF = 58%. Medium sized, moderate to severe intensity, fixed perfusion defect in the inferior segments and apex suggestive of a prior infarct. Perfusion imaging was negative for ischemia. Anesthesia Exam O2 Sat Height 1.74 m Height 1.74 m Weight 123.377 kg Weight 123.377 kg O2 Sat by Pulse Oximetry 96 Vital Signs Temp Pulse Resp BP Pulse Ox 97.7 F 66 143 143/72 96 06/14/18 08:46 06/14/18 08:46 06/14/18 08:46 06/14/18 08:46 06/14/18 08:46 Blood Glucose* 136 Height: 5'8.5'' Weight: 272 lbs NPO (# of Hours): 8 Pain Scale: 0 Pain Scale Used: Numeric (1 - 10) - HEENT Pupil (Motor): EOMI Mallampati: III Teeth: Missing, Poor dentition Denture Type: Upper: Complete, Lower: Partial Oral Opening: Greater than 3 - PHARMACOVIGILANCE SPECIALIST LOC: Oriented PHARMACOVIGILANCE SPECIALIST Motor: Normal RUE, Normal LUE, Normal RLE, Normal LLE, Normal Face PHARMACOVIGILANCE SPECIALIST Sensory: Normal: RUE, RLE, LLE, Face, Deficit: LUE - Cardiac Rhythm: Regular Murmur: None - Pulmonary Breath Sounds: bilateral Clear Respiratory Effort: Symmetrical Anesthesia Assess/Plan ASA Score: 4 (Patient understands that he is at increased risk for perioperative complications including myocardial infarct, arrhythmias, CVA, post op vent support/ICU stay, and . Patient wishes to proceed.) Level of consciousness: Cooperative, Oriented, Tranquil Anesthetic Plan: General Monitoring Plan: Standard Monitors Recovery Plan: PACU
[2018-06-14] MEDS ORDERED: *HR* Propofol 200 MG/20 ML VIAL IVP ONE (07:26)
[2018-06-14] MEDS ORDERED: *HR* FentaNYL (PF) 100 MCG/2 ML VIAL ONE (07:26)
[2018-06-14] MEDS ORDERED: *HR* Rocuronium Bromide 50 MG/5 ML VIAL ONE ×3 (07:29→11:01)
[2018-06-14] MEDS ORDERED: Lidocaine -MPF 4% 5 ML AMPUL ONE (07:29)
[2018-06-14] MEDS ORDERED: Ondansetron 4 MG/2 ML VIAL ONE (07:29)
[2018-06-14] MEDS ORDERED: Dexamethasone 4 MG/ML VIAL ONE (07:29)
[2018-06-14] MEDS ORDERED: Lidocaine -MPF 2% 2 ML VIAL ONE (07:29)
[2018-06-14] MEDS ORDERED: SUGAMMADEX SODIUM 500 MG/5 ML VIAL IV ONE (07:47)
[2018-06-14] MEDS ORDERED: KETAMINE HCL 50 MG/ML SYRINGE IV ONE (07:48)
[2018-06-14] MEDS ORDERED: CeFAZolin Syr 2,000MG/20 ML 2,000 MG/20 ML SYRINGE IVPB ONE (08:02)
--- NOTE | 2018-06-14 08:13 | History & Physical Report ---
Date of Encounter: 06/14/18 Time of Encounter: 08:13 24 Hour HP Update - Instructions Instructions: If the History and Physical is less than 30 days old and was completed prior to A.M. admission and or procedure and has NOT been updated on calendar day of procedure please complete this update prior to performing procedure. - Update Patient reports changes in Medical Condition: No Changes in examination, assessment, or condition: No Changes in Medication: No Preop tests/diagnostics Reviewed: Yes Pre-Op MRSA Screen: Negative Surgery Remains Indicated: Yes Consent for Planned Operative Procedure(s) Verified: Yes - Pre-Operative Checklist Preoperative Checklist Indicated: Yes Prophylactic Antibiotic Ordered: Yes Home Medications Include Beta Kevyn: Yes Beta Kevyn Taken Today (Day of Surgery): Yes Beta Kevyn Taken Yesterday (Day Prior to Surgery): Yes Is VTE Prophylaxis Indicated?: Yes
[2018-06-14] MEDS ORDERED: Ringers Solution, Lactated 1,000 ML IVC SCH ×2 (08:15→09:00)
[2018-06-14] MEDS ORDERED: *HR* HYDROmorphone (PF) 1 MG/ML SYRINGE IVP PRN (08:21)
[2018-06-14] MEDS ORDERED: Ondansetron 4 MG/2 ML VIAL IVP ONE (08:21)
[2018-06-14] MEDS ORDERED: *HR* OxyCODONE Immed Rel 5 MG TABLET PO PRN (08:21)
[2018-06-14] MEDS ORDERED: Albuterol 2.5 MG/3 ML NEBULIZER ONE (08:24)
[2018-06-14] MEDS ORDERED: CeFAZolin Syr 3,000MG/30 ML 3,000 MG/30 ML SYRINGE IVPB ONE (08:56)
[2018-06-14] MEDS ORDERED: EPHEDrine 50 MG/ML VIAL ONE (09:56)
[2018-06-14] MEDS ORDERED: *HR* PHENYLEPHRINE 1,000 MCG/10 ML SYRINGE IVP ONE (10:40)
[2018-06-14] MEDS ORDERED: *HR* Vasopressin 20 UNIT/ML VIAL ONE (10:51)
[2018-06-14] MEDS ORDERED: Albumin Human 5% 25.0 GM/500 ML VIAL ONE (11:10)
--- NOTE | 2018-06-14 13:07 | Operative Note ---
Date of procedure: 06/14/18 Pre-op diagnosis: c34.12 Post-op diagnosis: same Procedure: bronchoscopy with aspiration x 2 thoracotomy pneumolysis for 1.5 hours left pneumonectomy lymph node dissection Complications: bleeding from the pulmonary artery Local Anesthetics: 0.5% Sensorcaine HCL SubQ (cc) Surgeon: David Judge Was there an instructional assistant present: No Estimated blood loss (cc): 1,000 Specimen: left lung, nodes [id number] Condition: stable Disposition: ICU Procedure in Detail: This is a thoracic surgery procedure on [facility]. Patient was brought to the operating room placed on the operating table in the supine position. Perioperative antibiotics and DVT prophylaxis on board, the patient underwent bronchoscopy with aspiration of the tracheobronchial tree until clear double- lumen endotracheal tube was then seated in its correct anatomic position for single lung ventilation. He was then placed on the operating room table in the right lateral decubitus position with care to pad all pressure points. Prepped. Draped in the usual sterile fashion. Muscle-sparing thoracotomy was made with a #10 scalpel blade through the skin down of the subcutaneous tissues with the Bovie used to control hemostasis and to continue the dissection down to the fourth intercostal space which was entered. On entering the chest we spent 1.5 hours taking down adhesions due to the previous heart procedure. Once completing the pneumonolysis, the hilum was mobilized. The upper lobe vein was taken with the stapler. While trying to place the stapler on the anterior posterior segmental artery bleeding occurred from the main pulmonary artery. Control was immediately obtained and they pneumonectomy performed by taking down the main pulmonary artery with a TA stapler, the lower lobe vein with the single stapler, and the left mainstem bronchus with a on TA stapler. A complete lymph node dissection was performed to include lymph nodes stations 4, 5, 6, 7, 8, 9 and 10. Lymph node stations 11 through 14 were left for pathology to dissect o ut of the lung. Hemostasis and pneumostasis was excellent. Pledgeted 3-0 Prolene sutures 2 were placed to help reinforce the bronchial stump. 28-Hungarian chest tube placed and secured into place with a Ethibond suture. Intercostal space closed with #1 Vicryl the ausculatory triangle closed with #1 Vicryl a flat Johny-Caal drain was placed between the latissimus dorsi and the serratus anterior muscles and secured into place with a 2-0 silk suture the remaining incision was closed with 0 Vicryl and 4-0 Monocryl subcuticular stitches with dressings consisting of Steri-Strips and sterile gauze. Patient was then placed back on the operating room table in the supine position the double-lumen endotracheal tube exchanged for a single-lumen endotracheal tube and a second bronchoscopy with aspiration of both the right and left lung performed until clear the bronchial stump measured approximately 1 cm. Patient was extubated and taken to the intensive care unit breathing spontaneously and hemodynamically stable
[2018-06-14] MEDS ORDERED: Ondansetron 4 MG/2 ML VIAL IVP PRN (13:23)
[2018-06-14 13:43] LABS: Hematocrit 32.4 % (37.5-50.1); Hemoglobin 9.8 g/dL (12.9-16.9); Mean Corpuscular HGB Conc 30.2 g/dL (31.6-35.5); Mean Corpuscular Hemoglobin 25.1 pg (28.0-33.3); Mean Corpuscular Volume 83.1 fL (83.0-100.0); Mean Platelet Volume 9.9 fL (9.4-12.4); Platelet Count 132 K/mcL (140-400); Red Cell Distribution Width 16.9 % (11.5-14.5)
[2018-06-14 13:59] LABS: BUN/Creatinine Ratio 13 (6-26); Blood Urea Nitrogen 17 mg/dL (8-23); Calcium 7.8 mg/dL (8.6-10.3); Carbon Dioxide 27 mEq/L (23-29); Chloride 108 mEq/L (98-107); Glucose 186 mg/dL (70-105); Magnesium 1.8 mg/dL (1.6-2.6); Osmolality,Calculated 292 (280-300); Potassium 4.3 mEq/L (3.5-5.1); Sodium 138 mEq/L (136-145); eGFR For Non-African Americans 54 (> 60)
[2018-06-14] MEDS: *HR* HYDROcodone/Acet 5/325 mg TABLET PO PRN ×2 (15:13→19:48)
[2018-06-14] MEDS ORDERED: Ipratropium/Albuterol Neb 3 ML ONE (15:21)
[2018-06-14] MEDS: Ipratropium/Albuterol Neb 3 ML IH SCH ×3 (15:42→23:59)
[2018-06-14] MEDS: 0.9 % Sodium Chloride 1,000 ML IVC SCH (16:28)
[2018-06-14] MEDS: ceFAZolin 2,000 MG in 0.9 % Sodium Chloride 100 ML IVPB SCH ×2 (16:29→23:41)
[2018-06-14] MEDS: Gabapentin 300 MG CAPSULE PO SCH ×2 (16:30→19:48)
[2018-06-14] MEDS: Famotidine 20 MG TABLET PO SCH (19:48)
[2018-06-14] MEDS: traZODone 50 MG TABLET PO SCH (19:48)
[2018-06-14] MEDS ORDERED: traZODone 50 MG TABLET PO SCH (21:00)
[2018-06-15 01:03] LABS: Hematocrit 32.3 % (37.5-50.1); Hemoglobin 9.9 g/dL (12.9-16.9); Mean Corpuscular HGB Conc 30.7 g/dL (31.6-35.5); Mean Corpuscular Hemoglobin 25.4 pg (28.0-33.3); Mean Platelet Volume 9.8 fL (9.4-12.4); Platelet Count 144 K/mcL (140-400); Red Blood Count 3.89 M/mcL (4.19-5.50); Red Cell Distribution Width 16.8 % (11.5-14.5)
[2018-06-15 01:22] LABS: BUN/Creatinine Ratio 15 (6-26); Blood Urea Nitrogen 19 mg/dL (8-23); Carbon Dioxide 26 mEq/L (23-29); Chloride 106 mEq/L (98-107); Glucose 187 mg/dL (70-105); Magnesium 2.4 mg/dL (1.6-2.6); Osmolality,Calculated 289 (280-300); Phosphorous 2.6 mg/dL (2.7-4.5); Sodium 136 mEq/L (136-145); eGFR For Non-African Americans 57 (> 60)
[2018-06-15] MEDS: Ipratropium/Albuterol Neb 3 ML IH SCH ×5 (04:32→20:48)
[2018-06-15] MEDS: 0.9 % Sodium Chloride 1,000 ML IVC SCH (05:05)
--- NOTE | 2018-06-15 08:46 | Cardiothoracic Progress Note ---
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 All questions were answered. rouinded with nurse. removed chest tube. xray pending. updated patient and family with nurse int he room (2) CAD (coronary artery disease) Current Visit: No Status: Chronic The assessment and plan as outlined above was discussed with the patient and/or family members who expressed understanding and agreement. All questions were answered. hemodynamically stable. Qualifiers: Coronary Disease-Associated Artery/Lesion type: [place] artery [place] vs. transplanted heart: [place] heart (3) Hypertension Current Visit: No Status: Chronic The assessment and plan as outlined above was discussed with the patient and/or family members who expressed understanding and agreement. All questions were answered. stable Qualifiers: Hypertension type: essential hypertension (4) Atrial fibrillation with RVR Current Visit: No Status: Acute The assessment and plan as outlined above was discussed with the patient and/or family members who expressed understanding and agreement. All questions were answered. currently sinus Vital Signs, Last 4 Hours Temp Pulse Resp BP Pulse Ox 06/15/18 07:31 18 100 06/15/18 07:30 98.3 F 06/15/18 05:54 75 18 131/67 100 06/15/18 05:03 76 46 129/67 93 Oxgyen Flow Rate Oxygen Flow Rate (LPM) 2 Clinical Data, last 8 Hours Output, Chest Tube Drainage 100 Amount [Left Lateral Chest #1] Output, Chest Tube Drainage 120 Amount [Left Lateral Chest #1] Weight 06/13/18 06/14/18 06/15/18 23:59 23:59 23:59 Weight 117 kg 125.7 kg - Physical Examination General: Conversant, No Apparent Distress HEENT: Atraumatic, Normocephaly Cardiac: Reg Rate and Rhythm Incision: No signs of infection, Dry/intact dressing, Open to air Neuro: Alert and responsive, No focal deficits noted, Cranial nerves intact, Motor nerves intact - Labs 06/15/18 00:38 06/15/18 00:38 Lab Results, Last 24 hours 06/14/18 06/14/18 06/15/18 13:30 13:30 00:38 WBC 9.1 10.1 Hgb 9.8 L 9.9 L Hct 32.4 L 32.3 L Plt Count 132 L 144 Sodium 138 Potassium 4.3 Chloride 108 H Carbon Dioxide 27 BUN 17 Creatinine 1.29 Glucose 186 H Calcium 7.8 L Magnesium 1.8 06/15/18 00:38 WBC Hgb Hct Plt Count Sodium 136 Potassium 5.0 Chloride 106 Carbon Dioxide 26 BUN 19 Creatinine 1.24 Glucose 187 H Calcium 8.0 L Magnesium 2.4 Consult Discharge Plan - Plan Additional Instructions: Please go to Out Patient testing on July 10, 2018 around 1200PM to get an x-ray done before you go see Dr. Judge. The office is sending the order over to out patient testing at the [facility]. Referrals: Ronal Mcbride MD [Primary Care Provider] - David Judge MD [Partnered Physician] - 07/10/18 1:00 pm
[2018-06-15] MEDS ORDERED: Aspirin 81 MG TAB.CHEW PO SCH (09:00)
[2018-06-15] MEDS: ceFAZolin 2,000 MG in 0.9 % Sodium Chloride 100 ML IVPB SCH ×2 (09:00→16:23)
[2018-06-15] MEDS: Gabapentin 300 MG CAPSULE PO SCH ×2 (09:01→20:35)
[2018-06-15] MEDS: Famotidine 20 MG TABLET PO SCH ×2 (09:01→20:35)
[2018-06-15] MEDS: Aspirin 81 MG TAB.CHEW PO SCH (09:02)
[2018-06-15] MEDS: *HR* HYDROcodone/Acet 5/325 mg TABLET PO PRN (09:07)
[2018-06-15] MEDS ORDERED: metOLazone 2.5 MG TABLET PO SCH ×2 (12:50)
[2018-06-15] MEDS: traZODone 50 MG TABLET PO SCH (20:35)
[2018-06-16] MEDS: Ipratropium/Albuterol Neb 3 ML IH SCH ×6 (00:06→20:41)
[2018-06-16 05:17] LABS: Hematocrit 30.4 % (37.5-50.1); Hemoglobin 9.3 g/dL (12.9-16.9); Mean Corpuscular HGB Conc 30.6 g/dL (31.6-35.5); Mean Corpuscular Hemoglobin 25.1 pg (28.0-33.3); Mean Corpuscular Volume 81.9 fL (83.0-100.0); Mean Platelet Volume 10.2 fL (9.4-12.4); Platelet Count 148 K/mcL (140-400); Red Blood Count 3.71 M/mcL (4.19-5.50); Red Cell Distribution Width 17.2 % (11.5-14.5)
[2018-06-16 05:36] LABS: BUN/Creatinine Ratio 20 (6-26); Blood Urea Nitrogen 23 mg/dL (8-23); Carbon Dioxide 23 mEq/L (23-29); Chloride 105 mEq/L (98-107); Glucose 165 mg/dL (70-105); Magnesium 2.2 mg/dL (1.6-2.6); Osmolality,Calculated 289 (280-300); Potassium 4.2 mEq/L (3.5-5.1); Sodium 136 mEq/L (136-145); eGFR For Non-African Americans > 60 (> 60)
[2018-06-16] MEDS: Famotidine 20 MG TABLET PO SCH ×3 (07:39→20:48)
[2018-06-16] MEDS: Aspirin 81 MG TAB.CHEW PO SCH ×2 (07:40→09:15)
[2018-06-16] MEDS: Gabapentin 300 MG CAPSULE PO SCH ×3 (07:40→20:48)
--- NOTE | 2018-06-16 08:23 | Cardiothoracic Progress Note ---
Date of Encounter: 06/16/18 Time of Encounter: 08:22 - Assessment and plan (1) Cancer of upper lobe of left lung Current Visit: Yes Status: Acute The assessment and plan as outlined above was discussed with the patient and/or family members who expressed understanding and agreement. All questions were answered. rounded with nurse. tx to floor (2) CAD (coronary artery disease) Current Visit: No Status: Chronic The assessment and plan as outlined above was discussed with the patient and/or family members who expressed understanding and agreement. All questions were answered. hemodynamically stable. Qualifiers: Coronary Disease-Associated Artery/Lesion type: [place] artery [place] vs. transplanted heart: [place] heart (3) Hypertension Current Visit: No Status: Chronic The assessment and plan as outlined above was discussed with the patient and/or family members who expressed understanding and agreement. All questions were answered. stable Qualifiers: Hypertension type: essential hypertension (4) Atrial fibrillation with RVR Current Visit: No Status: Acute The assessment and plan as outlined above was discussed with the patient and/or family members who expressed understanding and agreement. All questions were answered. currently sinus Vital Signs, Last 4 Hours Temp Pulse Resp BP Pulse Ox 06/16/18 08:00 88 18 123/77 95 06/16/18 07:29 96 06/16/18 07:10 98.6 F 06/16/18 06:00 102 19 120/70 97 06/16/18 05:00 96 15 125/72 99 Oxgyen Flow Rate Oxygen Flow Rate (LPM) 2 Weight 06/14/18 06/15/18 06/16/18 23:59 23:59 23:59 Weight 117 kg 125.7 kg 126.6 kg - Physical Examination General: Conversant, No Apparent Distress, Well developed, Well nourished HEENT: Atraumatic, Normocephaly, Trachea midline Neck: No JVD Cardiac: Reg Rate and Rhythm, Normal S1 and S2, No Murmur Incision: No signs of infection, Dry/intact dressing, Open to air Lungs: Normal Breath Sounds Neuro: Alert and responsive, No focal deficits noted, Cranial nerves intact, Motor nerves intact Vascular: Normal capillary refill Abdomen: Soft, Non-tender, Other (bs present. ) - Labs 06/16/18 03:52 06/16/18 03:52 Lab Results, Last 24 hours 06/16/18 06/16/18 03:52 03:52 WBC 12.7 H Hgb 9.3 L Hct 30.4 L Plt Count 148 Sodium 136 Potassium 4.2 Chloride 105 Carbon Dioxide 23 BUN 23 Creatinine 1.15 Glucose 165 H Calcium 8.0 L Magnesium 2.2 - Imaging Chest Xray: image reviewed Consult Discharge Plan - Plan Additional Instructions: Please go to Out Patient testing on July 10, 2018 around 1200PM to get an x-ray done before you go see Dr. Judge. The office is sending the order over to out patient testing at the [facility]. Referrals: Ronal Mcbride MD [Primary Care Provider] - David Judge MD [Partnered Physician] - 07/10/18 1:00 pm
[2018-06-16] MEDS ORDERED: *HR* HYDROcodone/Acet 5/325 mg TABLET PO PRN (08:26)
[2018-06-16] MEDS ORDERED: Ondansetron 4 MG/2 ML VIAL IVP PRN (08:26)
[2018-06-16] MEDS ORDERED: Sennosides/Docusate Sodium TABLET PO SCH (09:00)
[2018-06-16] MEDS: Sennosides/Docusate Sodium TABLET PO SCH ×2 (09:29→20:48)
[2018-06-16] MEDS: Acetaminophen 325 MG TABLET PO PRN (13:02)
[2018-06-16] MEDS ORDERED: Amiodarone Premix 150 MG/100 ML BAG IVPB ONE (16:40)
[2018-06-16] MEDS ORDERED: Amiodarone Premix 360 MG/200 ML BAG IVC ONE (16:40)
[2018-06-16] MEDS: Amiodarone Premix 360 MG/200 ML BAG IVC SCH ×2 (17:44→23:46)
[2018-06-16] MEDS ORDERED: Acetaminophen 325 MG TABLET PO PRN (18:00)
[2018-06-16] MEDS: traZODone 50 MG TABLET PO SCH (20:47)
[2018-06-17] MEDS: Ipratropium/Albuterol Neb 3 ML IH SCH ×6 (00:28→20:01)
[2018-06-17] MEDS: Gabapentin 300 MG CAPSULE PO SCH ×2 (07:58→20:59)
[2018-06-17] MEDS: Famotidine 20 MG TABLET PO SCH ×2 (07:58→20:59)
[2018-06-17] MEDS: Sennosides/Docusate Sodium TABLET PO SCH ×2 (07:59→20:59)
[2018-06-17] MEDS: Aspirin 81 MG TAB.CHEW PO SCH (07:59)
--- NOTE | 2018-06-17 09:20 | Cardiothoracic Progress Note ---
Date of Encounter: 06/17/18 Time of Encounter: 09:17 - Assessment and plan (1) Cancer of upper lobe of left lung Current Visit: Yes Status: Acute The assessment and plan as outlined above was discussed with the patient and/or family members who expressed understanding and agreement. All questions were answered. The patient is doing well. We will transfer him to the floor. We will continue the amiodarone drip until tomorrow morning. We will order laxative for constipation. - Subjective Interval history: The patient went into atrial fibrillation last night and was placed on an amiodarone drip. He complains of mild shortness of breath. Vital Signs, Last 4 Hours Temp Pulse Resp BP Pulse Ox 06/17/18 08:00 79 18 122/77 94 06/17/18 07:15 98.4 F 06/17/18 07:05 78 Oxgyen Flow Rate Oxygen Flow Rate (LPM) 2 Weight 06/15/18 06/16/18 06/17/18 23:59 23:59 23:59 Weight 125.7 kg 116.8 kg He is right lung is clear. He is back in normal sinus rhythm. Chest x-ray reveals what is expected for a left pneumonectomy - Labs 06/16/18 03:52 06/16/18 03:52 Consult Discharge Plan - Plan Additional Instructions: Please go to Out Patient testing on July 10, 2018 around 1200PM to get an x-ray done before you go see Dr. Judge. The office is sending the order over to out patient testing at the [facility]. Referrals: Ronal Mcbride MD [Primary Care Provider] - David Judge MD [Partnered Physician] - 07/10/18 1:00 pm
[2018-06-17] MEDS: Amiodarone Premix 360 MG/200 ML BAG IVC SCH ×2 (10:34→22:44)
[2018-06-17] MEDS: Acetaminophen 325 MG TABLET PO PRN ×2 (12:17→18:14)
[2018-06-17] MEDS: traZODone 50 MG TABLET PO SCH (21:00)
[2018-06-18] MEDS: Ipratropium/Albuterol Neb 3 ML IH SCH ×6 (00:08→20:22)
[2018-06-18] MEDS ORDERED: metOLazone 2.5 MG TABLET PO SCH (08:30)
[2018-06-18] MEDS: Gabapentin 300 MG CAPSULE PO SCH ×2 (08:59→21:43)
[2018-06-18] MEDS: Famotidine 20 MG TABLET PO SCH ×2 (08:59→21:42)
[2018-06-18] MEDS: Aspirin 81 MG TAB.CHEW PO SCH (09:00)
[2018-06-18] MEDS: Sennosides/Docusate Sodium TABLET PO SCH ×2 (09:00→21:43)
[2018-06-18] MEDS: Acetaminophen 325 MG TABLET PO PRN ×2 (09:05→09:34)
[2018-06-18] MEDS: metOLazone 2.5 MG TABLET PO SCH (09:05)
--- NOTE | 2018-06-18 09:22 | Cardiothoracic Progress Note ---
Date of Encounter: 06/18/18 Time of Encounter: 09:21 - Assessment and plan (1) Cancer of upper lobe of left lung Current Visit: Yes Status: Acute The assessment and plan as outlined above was discussed with the patient and/or family members who expressed understanding and agreement. All questions were answered. rounded with nurse. (2) CAD (coronary artery disease) Current Visit: No Status: Chronic The assessment and plan as outlined above was discussed with the patient and/or family members who expressed understanding and agreement. All questions were answered. hemodynamically stable. Qualifiers: Coronary Disease-Associated Artery/Lesion type: [place] artery [place] vs. transplanted heart: [place] heart (3) Hypertension Current Visit: No Status: Chronic The assessment and plan as outlined above was discussed with the patient and/or family members who expressed understanding and agreement. All questions were answered. stable Qualifiers: Hypertension type: essential hypertension (4) Atrial fibrillation with RVR Current Visit: No Status: Acute The assessment and plan as outlined above was discussed with the patient and/or family members who expressed understanding and agreement. All questions were answered. currently sinus change amiodarone to po - Subjective Interval history: pain with coughing Vital Signs, Last 4 Hours Temp Pulse Resp BP Pulse Ox 06/18/18 09:10 88 113/96 99 06/18/18 07:33 70 122/90 99 06/18/18 07:29 18 96 06/18/18 07:06 98.2 F 72 18 143/81 98 Oxgyen Flow Rate Oxygen Flow Rate (LPM) 2 Clinical Data, last 8 Hours Output, Urine Amount 0 Weight 06/16/18 06/17/18 06/18/18 23:59 23:59 23:59 Weight 116.8 kg 116.7 kg - Physical Examination General: Conversant, No Apparent Distress, Well developed HEENT: Atraumatic, Normocephaly, Trachea midline Cardiac: Reg Rate and Rhythm, Normal S1 and S2 Incision: No signs of infection, Dry/intact dressing, Open to air Lungs: Normal Breath Sounds Neuro: Alert and responsive, No focal deficits noted Vascular: Normal capillary refill Abdomen: Soft, Non-tender, Other (flatus but no bm ) Extremities: Other (1+ peripheral edema at baseline ) - Labs 06/16/18 03:52 06/16/18 03:52 Consult Discharge Plan - Plan Additional Instructions: Please go to Out Patient testing on July 10, 2018 around 1200PM to get an x-ray done before you go see Dr. Judge. The office is sending the order over to out patient testing at the [facility]. Referrals: Ronal Mcbride MD [Primary Care Provider] - David Judge MD [Partnered Physician] - 07/10/18 1:00 pm
[2018-06-18] MEDS: *HR* Amiodarone 200 MG TABLET PO SCH (09:34)
[2018-06-18] MEDS: *HR* LORazepam 1 MG TABLET PO SCH ×2 (10:39→21:42)
[2018-06-18] MEDS: traZODone 50 MG TABLET PO SCH (21:43)
[2018-06-19 07:47] LABS: Hematocrit 33.8 % (37.5-50.1); Hemoglobin 10.1 g/dL (12.9-16.9); Mean Corpuscular HGB Conc 29.9 g/dL (31.6-35.5); Mean Corpuscular Hemoglobin 24.6 pg (28.0-33.3); Mean Corpuscular Volume 82.4 fL (83.0-100.0); Mean Platelet Volume 10.4 fL (9.4-12.4); Platelet Count 169 K/mcL (140-400); Red Cell Distribution Width 17.2 % (11.5-14.5)
[2018-06-19] MEDS: Famotidine 20 MG TABLET PO SCH ×2 (08:14→20:27)
[2018-06-19] MEDS: Acetaminophen 325 MG TABLET PO PRN ×2 (08:14→17:15)
[2018-06-19] MEDS: *HR* Amiodarone 200 MG TABLET PO SCH (08:15)
[2018-06-19] MEDS: Gabapentin 300 MG CAPSULE PO SCH ×2 (08:15→20:25)
[2018-06-19] MEDS: *HR* LORazepam 1 MG TABLET PO SCH ×2 (08:15→20:24)
[2018-06-19] MEDS: Sennosides/Docusate Sodium TABLET PO SCH ×2 (08:15→20:26)
[2018-06-19] MEDS: Aspirin 81 MG TAB.CHEW PO SCH (08:15)
[2018-06-19 08:40] LABS: BUN/Creatinine Ratio 20 (6-26); Blood Urea Nitrogen 26 mg/dL (8-23); Calcium 8.7 mg/dL (8.6-10.3); Carbon Dioxide 28 mEq/L (23-29); Chloride 99 mEq/L (98-107); Glucose 157 mg/dL (70-105); Osmolality,Calculated 290 (280-300); Potassium 3.7 mEq/L (3.5-5.1); Sodium 136 mEq/L (136-145); eGFR For Non-African Americans 53 (> 60)
--- NOTE | 2018-06-19 09:34 | Cardiothoracic Progress Note ---
Date of Encounter: 06/19/18 Time of Encounter: 09:37 - Assessment and plan (1) Cancer of upper lobe of left lung Current Visit: Yes Status: Acute The assessment and plan as outlined above was discussed with the patient and/or family members who expressed understanding and agreement. All questions were answered. rounded with nurse. (2) CAD (coronary artery disease) Current Visit: No Status: Chronic The assessment and plan as outlined above was discussed with the patient and/or family members who expressed understanding and agreement. All questions were answered. hemodynamically stable. Qualifiers: Coronary Disease-Associated Artery/Lesion type: [place] artery [place] vs. transplanted heart: [place] heart (3) Hypertension Current Visit: No Status: Chronic The assessment and plan as outlined above was discussed with the patient and/or family members who expressed understanding and agreement. All questions were answered. stable Qualifiers: Hypertension type: essential hypertension (4) Atrial fibrillation with RVR Current Visit: No Status: Acute The assessment and plan as outlined above was discussed with the patient and/or family members who expressed understanding and agreement. All questions were answered. currently sinus change amiodarone to po increase metoprolol to 75 bid (5) Chronic renal disease, stage 2, mildly decreased glomerular filtration rate (GFR) between 60-89 mL/min/1.73 square meter Current Visit: Yes Status: Acute The assessment and plan as outlined above was discussed with the patient and/or family members who expressed understanding and agreement. All questions were answere no chnages - Subjective Interval history: pain with coughing Vital Signs, Last 4 Hours Temp Pulse Resp BP Pulse Ox 06/19/18 08:07 98.3 F 124 20 116/78 95 06/19/18 07:28 16 97 Oxgyen Flow Rate Oxygen Flow Rate (LPM) 2 Clinical Data, last 8 Hours Output, Urine Amount 200 Weight 06/17/18 06/18/18 06/19/18 23:59 23:59 23:59 Weight 116.7 kg - Physical Examination HEENT: Atraumatic, Normocephaly Incision: No signs of infection Vascular: Normal capillary refill - Labs 06/19/18 07:15 06/19/18 07:15 Lab Results, Last 24 hours 06/19/18 06/19/18 07:15 07:15 WBC 9.5 Hgb 10.1 L Hct 33.8 L Plt Count 169 Sodium 136 Potassium 3.7 Chloride 99 Carbon Dioxide 28 BUN 26 H Creatinine 1.32 H Glucose 157 H Calcium 8.7 Magnesium 2.0 - Imaging Chest Xray: image reviewed Consult Discharge Plan - Plan Additional Instructions: Please go to Out Patient testing on July 10, 2018 around 1200PM to get an x-ray done before you go see Dr. Judge. The office is sending the order over to out patient testing at the [facility]. Referrals: Ronal Mcbride MD [Primary Care Provider] - David Judge MD [Partnered Physician] - 07/10/18 1:00 pm
[2018-06-19] MEDS ORDERED: Metoprolol XL (24 HR) Succ 25 MG TAB.ER.24H PO ONE (16:51)
[2018-06-19] MEDS: traZODone 50 MG TABLET PO SCH (20:25)
[2018-06-19] MEDS: traMADol 50 MG TABLET PO PRN (22:59)
[2018-06-19] MEDS ORDERED: Norepinephrine 4 MG in D5% in Water 250 ML IVC SCH (23:45)
[2018-06-20] MEDS: Gabapentin 300 MG CAPSULE PO SCH ×2 (08:01→21:34)
[2018-06-20] MEDS: *HR* Amiodarone 200 MG TABLET PO SCH (08:01)
[2018-06-20] MEDS: Aspirin 81 MG TAB.CHEW PO SCH (08:01)
[2018-06-20] MEDS: Famotidine 20 MG TABLET PO SCH ×2 (08:01→21:34)
[2018-06-20] MEDS: Sennosides/Docusate Sodium TABLET PO SCH ×2 (08:01→21:36)
[2018-06-20] MEDS: *HR* LORazepam 1 MG TABLET PO SCH ×2 (08:03→21:35)
[2018-06-20] MEDS: metOLazone 2.5 MG TABLET PO SCH (08:16)
[2018-06-20] MEDS: Acetaminophen 325 MG TABLET PO PRN (08:19)
[2018-06-20] MEDS ORDERED: Lidocaine -MPF 2% 5 ML VIAL ONE (09:06)
--- NOTE | 2018-06-20 11:45 | Physician Discharge Referral ---
ExtendedCare Referral Info Transfer To: extended rehab Provider in Charge after Transfer: PCP Institutional Level of Care: Skilled - Diagnosis (1) Cancer of upper lobe of left lung Priority: Primary Status: Acute (2) CAD (coronary artery disease) Priority: Secondary Status: Chronic (3) Hypertension Priority: Secondary Status: Chronic (4) Atrial fibrillation with RVR Priority: Secondary Status: Chronic (5) Chronic renal disease, stage 2, mildly decreased glomerular filtration rate (GFR) between 60-89 mL/min/1.73 square meter Priority: Secondary Status: Chronic Expected Duration of Placement: back to baseline Prognosis: Good Aware of Diagnosis: Patient, Family - Transfer Medications Home Medications: Aspirin 81 mg PO DAILY 10/12/15 [History] Furosemide [Lasix] 80 mg PO DAILY 10/12/15 [History] LORazepam [Ativan] 1 mg PO BID PRN 10/12/15 [History] Lansoprazole [Prevacid] 30 mg PO DAILY 10/12/15 [History] Metoprolol Tartrate [Lopressor] 50 mg PO BID 10/12/15 [History] Montelukast [Singulair] 10 mg PO QPM 10/12/15 [History] Nitroglycerin [Nitrostat] 0.4 mg SL Q5M PRN 10/12/15 [History] Rivaroxaban [Xarelto] 20 mg PO DAILY 10/12/15 [History] Rosuvastatin Calcium [Crestor] 10 mg PO QPM 10/12/15 [History] Albuterol Sulfate [Ventolin Hfa] 2 puff IH Q6H PRN 04/17/18 [History] Potassium Chloride [Klor-Con 10] 10 meq PO DAILY 04/17/18 [History] Tiotropium Br/Olodaterol HCl [Stiolto Respimat Inhal [place]] 2 puff IH DAILY 04/17/18 [History] metOLazone [Zaroxolyn] 2.5 mg PO MOWEFR 04/17/18 [History] Cholecalciferol (D-3) [Vitamin D] 2,000 unit PO DAILY 06/14/18 [History] traZODone [TraZODone] 50 mg PO HS 06/14/18 [History] Allergies/Adverse Reactions: Allergy/AdvReac Type Severity Reaction Status Date / Time codeine AdvReac See Verified 06/14/18 08:01 Comments lisinopril AdvReac Cough Verified 06/14/18 08:01 - Respiratory Orders Smoking Cessation: Smoking cessation has been advised. For more information, call the [place] Tobacco Quit Line at 1-120-NPIL-NOW. - Advance Directives Living Will: Yes Power of Housing Management Officer for Health Care: Yes Code Status: Full Code - Mobility Orders Ambulate (tid with physical therapy) - Rehabiliation Orders Rehab Potential: Good Rehab Orders: ROM Exercises, Evaluation for Physical Therapy, Evaluation for Occupational Therapy, Evaluation for Speech Therapy - Diet Orders Cardiac CERTIFICATION: I certify that the transfer of the above named patient to an Extended Care Facility is necessary for the continuing treatment of the diagnosis listed. The above information is true and accurate reflection of patient's current condition. Confidential - Redisclosure prohibited without a patient's written consent.
--- NOTE | 2018-06-20 11:53 | Cardiothoracic Progress Note ---
Date of Encounter: 06/20/18 Time of Encounter: 11:52 - Assessment and plan (1) Cancer of upper lobe of left lung Current Visit: Yes Status: Acute The assessment and plan as outlined above was discussed with the patient and/or family members who expressed understanding and agreement. All questions were answered. rounded with nurse. removed gisele rounded [facility] social work for rehab. orders completed. (2) CAD (coronary artery disease) Current Visit: No Status: Chronic The assessment and plan as outlined above was discussed with the patient and/or family members who expressed understanding and agreement. All questions were answered. hemodynamically stable. Qualifiers: Coronary Disease-Associated Artery/Lesion type: [place] artery [place] vs. transplanted heart: [place] heart (3) Hypertension Current Visit: No Status: Chronic The assessment and plan as outlined above was discussed with the patient and/or family members who expressed understanding and agreement. All questions were answered. stable Qualifiers: Hypertension type: essential hypertension (4) Atrial fibrillation with RVR Current Visit: No Status: Chronic The assessment and plan as outlined above was discussed with the patient and/or family members who expressed understanding and agreement. All questions were answered. currently sinus change amiodarone to po increase metoprolol to 75 bid (5) Chronic renal disease, stage 2, mildly decreased glomerular filtration rate (GFR) between 60-89 mL/min/1.73 square meter Current Visit: Yes Status: Chronic The assessment and plan as outlined above was discussed with the patient and/or family members who expressed understanding and agreement. All questions were answere no chnages - Subjective Interval history: pain with coughing Vital Signs, Last 4 Hours Temp Pulse Resp BP Pulse Ox 06/20/18 11:16 98.0 F 90 18 124/88 95 06/20/18 10:40 18 97 06/20/18 08:04 97.7 F 94 20 124/96 97 Oxgyen Flow Rate Oxygen Flow Rate (LPM) 2 Weight 06/18/18 06/19/18 06/20/18 23:59 23:59 23:59 Weight 116.7 kg 120.7 kg - Physical Examination General: Conversant, No Apparent Distress, Well developed, Well nourished HEENT: Atraumatic, Normocephaly Cardiac: Reg Rate and Rhythm Incision: No signs of infection, Dry/intact dressing, Open to air Neuro: Alert and responsive, No focal deficits noted, Cranial nerves intact - Labs 06/19/18 07:15 06/19/18 07:15 Consult Discharge Plan - Plan Additional Instructions: Please go to Out Patient testing on July 10, 2018 around 1200PM to get an x-ray done before you go see Dr. Judge. The office is sending the order over to out patient testing at the [facility]. Referrals: Ronal Mcbride MD [Primary Care Provider] - David Judge MD [Partnered Physician] - 07/10/18 1:00 pm
[2018-06-20] MEDS: traZODone 50 MG TABLET PO SCH (21:35)
[2018-06-20] MEDS: traMADol 50 MG TABLET PO PRN (22:29)
[2018-06-21] MEDS: traMADol 50 MG TABLET PO PRN (05:09)
[2018-06-21] MEDS: Aspirin 81 MG TAB.CHEW PO SCH (08:32)
[2018-06-21] MEDS: *HR* Amiodarone 200 MG TABLET PO SCH (08:32)
[2018-06-21] MEDS: Gabapentin 300 MG CAPSULE PO SCH (08:32)
[2018-06-21] MEDS: Famotidine 20 MG TABLET PO SCH (08:32)
[2018-06-21] MEDS: *HR* LORazepam 1 MG TABLET PO SCH (08:32)
[2018-06-21] MEDS: Sennosides/Docusate Sodium TABLET PO SCH (08:34)
[2018-06-21 15:41] VITALS: BP 121/70
--- NOTE | 2018-06-21 15:53 | Discharge Summary ---
Orders not resulted at time of discharge: Pending orders 06/13/18 08:55 Red Blood Cells [BBK] Routine Date of Encounter: 06/21/18 Time of Encounter: 15:51 - Discharge Diagnosis (1) Cancer of upper lobe of left lung Priority: Primary Status: Acute (2) CAD (coronary artery disease) Priority: Secondary Status: Chronic Qualifiers: Coronary Disease-Associated Artery/Lesion type: [place] artery [place] vs. transplanted heart: [place] heart Associated angina: without angina Qualified Code(s): I25.10 - Atherosclerotic heart disease of [place] coronary artery without angina pectoris (3) Hypertension Priority: Secondary Status: Chronic Qualifiers: Hypertension type: essential hypertension Qualified Code(s): I10 - [place] (primary) hypertension (4) Atrial fibrillation with RVR Priority: Secondary Status: Chronic (5) Chronic renal disease, stage 2, mildly decreased glomerular filtration rate (GFR) between 60-89 mL/min/1.73 square meter Priority: Secondary Status: Chronic - Hospital Course Hospital course: Mr. Sanchez is a 72 year old male - Time Spent with Patient Total time spent providing and/or coordinating discharge services: - Discharge Medications Prescriptions: No Action Montelukast [Singulair] 10 mg PO QPM Aspirin 81 mg PO DAILY LORazepam [Ativan] 1 mg PO BID PRN PRN Reason: Anxiety Furosemide [Lasix] 80 mg PO DAILY Rosuvastatin Calcium [Crestor] 10 mg PO QPM Rivaroxaban [Xarelto] 20 mg PO DAILY Nitroglycerin [Nitrostat] 0.4 mg SL Q5M PRN PRN Reason: Chest Pain Metoprolol Tartrate [Lopressor] 50 mg PO BID Lansoprazole [Prevacid] 30 mg PO DAILY Albuterol Sulfate [Ventolin Hfa] 2 puff IH Q6H PRN PRN Reason: Shortness Of Breath metOLazone [Zaroxolyn] 2.5 mg PO MOWEFR Potassium Chloride [Klor-Con 10] 10 meq PO DAILY Tiotropium Br/Olodaterol HCl [Stiolto Respimat Inhal [place]] 2 puff IH DAILY Cholecalciferol (D-3) [Vitamin D] 2,000 unit PO DAILY traZODone [TraZODone] 50 mg PO HS Home Medications: Aspirin 81 mg PO DAILY 10/12/15 [History] Furosemide [Lasix] 80 mg PO DAILY 10/12/15 [History] LORazepam [Ativan] 1 mg PO BID PRN 10/12/15 [History] Lansoprazole [Prevacid] 30 mg PO DAILY 10/12/15 [History] Metoprolol Tartrate [Lopressor] 50 mg PO BID 10/12/15 [History] Montelukast [Singulair] 10 mg PO QPM 10/12/15 [History] Nitroglycerin [Nitrostat] 0.4 mg SL Q5M PRN 10/12/15 [History] Rivaroxaban [Xarelto] 20 mg PO DAILY 10/12/15 [History] Rosuvastatin Calcium [Crestor] 10 mg PO QPM 10/12/15 [History] Albuterol Sulfate [Ventolin Hfa] 2 puff IH Q6H PRN 04/17/18 [History] Potassium Chloride [Klor-Con 10] 10 meq PO DAILY 04/17/18 [History] Tiotropium Br/Olodaterol HCl [Stiolto Respimat Inhal [place]] 2 puff IH DAILY 04/17/18 [History] metOLazone [Zaroxolyn] 2.5 mg PO MOWEFR 04/17/18 [History] Cholecalciferol (D-3) [Vitamin D] 2,000 unit PO DAILY 06/14/18 [History] traZODone [TraZODone] 50 mg PO HS 06/14/18 [History] Allergies/Adverse Reactions: Allergy/AdvReac Type Severity Reaction Status Date / Time codeine AdvReac See Verified 06/14/18 08:01 Comments lisinopril AdvReac Cough Verified 06/14/18 08:01 Date of admission: 06/14/18 13:19 Primary care physician: Ronal Mcbride MD Consults: 06/19/18 12:16 Consult to Occupational Therapy [CONS] Routine Comment: Evaluate, develop and implement POC Reason for Consult: weakness, unsteady gait Does patient have active BEDREST order?: No Is patient medically & hemodynamically stable?: Yes Patient assessed for mobility or mobilized this visit?: Yes Consult to Physical Therapy [CONS] Routine Comment: Evaluate, develop and implement POC Reason for Consult: Weakness, unsteady gait Does patient have active BEDREST order?: No Is patient medically & hemodynamically stable?: Yes Patient assessed for mobility or mobilized this visit?: Yes Procedure(s) Performed: bronchoscopy, pneumonectomy, lymph node dissection Discharging clinician: David Judge Anticipated date of discharge: 06/21/18 Physical Examination Vital Signs, Last 4 Hours Temp Pulse Resp BP Pulse Ox 06/21/18 15:38 97.8 F 73 19 121/70 06/21/18 11:59 18 97 General: Conversant, No Apparent Distress HEENT: Atraumatic, Normocephaly Neck: No JVD Neuro: Alert and responsive, No focal deficits noted, Cranial nerves intact Abdomen: Soft, Non-tender Skin: No rashes noted on visualized skin - Patient Status Disposition: Transfer SNF Condition: Good Functional capacity at discharge: uses cane/walker Overall status at discharge: patient is progressing back to baseline - Discharge Instructions Follow Up With: Ronal Mcbride MD [Primary Care Provider] - David Judge MD [Partnered Physician] - 07/10/18 1:00 pm - Diet and Activity Activity: resume usual activities as tolerated, as per physical therapy, other Diet: regular diet
== END 2018-06-21 17:43 | DRG 164 ==
LOC: SAMDAY 07:13 → ICNU 13:19 → 2NNU 06-18 05:29
PROVIDERS: ADMIT Thoracic Surgery (Cardiothoracic Vascular Surgery); ATTEND Thoracic Surgery (Cardiothoracic Vascular Surgery)